=== PATIENT | female | born 1985 | race Caucasian/White ===

== ENCOUNTER 2018-08-24 11:06 | Emergency (ER) | payer MEDICAID ==
[~2018-08-24] VITALS: Ht 167.6 cm; Wt 58.5 kg
[~2018-08-24 11:06] MED LIST: CARAFATE 1 GM TA1 GM PO; CIPROFLOXACIN500 M1 PO; CLEOCIN HCL150 MG PO; CLOBETASOL PROP59 ML TP; CLOTRIMAZOLE-BE15 GM TP; FERRO-TIME325 MG PO; FLOXIN OTI0.3 %/5 ML OTIC; GAVISCON ES CH1 EAC1 PO; HYDROXYZINE HCL50 MG PO; IBUPROFEN 600600 M1 PO; NOHOMEMEDICATIONS; NORCO 5-325 TA1 EACH PO; OMEPRAZOLE40 MG PO; PEPCID40 MG PO; PRENATAL; PRENATAL MULTI1 EAC2 PO; PROTONIX40 MG PO; PYRIDIUM200 MG PO; ZOFRAN ODT4 MG PO; ZOVIRAX15 GM TP
[2018-08-24] MEDS ORDERED: AZITHROMYCIN 2250 MG PO (11:19)
[2018-08-24 11:40] LABS: ABSOLUTE EOSINOPHILS 0.1 thou/uL (0.0-0.7); ABSOLUTE LYMPHOCYTES 2.2 thou/uL (0.8-5.3); ABSOLUTE MONOCYTES 0.5 thou/uL (0.0-1.2); ABSOLUTE NEUTROPHILS 4.6 thou/uL (1.6-8.1); BASOPHILS 0.5 %; EOSINOPHILS 1.4 %; HEMATOCRIT 39.4 % (37.0-47.0); HEMOGLOBIN 13.1 gm/dL (12.0-15.0); LYMPHOCYTES 30.1 %; MCH 30.7 pg (26.0-34.0); MCHC 33.2 g/dL (28.0-37.0); MCV 92.3 fL (80.0-100.0); MONOCYTES 6.4 %; MPV 8.1 fl. (7.2-11.1); NUCLEATED RBCS 0 /100WBC; PLATELET COUNT* 242 thou/uL (150-400); POLYS 61.6 %; RBC 4.27 mil/uL (4.20-5.00); RDW-CV 12.9 % (10.5-14.5); WBC 7.4 thou/uL (4.0-11.0)
[2018-08-24 11:49] LABS: CALCIUM 9.4 mg/dL (8.5-10.1); CREATININE 0.6 mg/dL (0.6-1.3); POTASSIUM 3.7 mmol/L (3.5-5.1)
[2018-08-24 11:54] LABS: ALBUMIN 4.2 g/dL (3.4-5.0); TOTAL BILIRUBIN 0.4 mg/dL (<0.1-1.0); TOTAL PROTEIN 7.9 g/dL (6.4-8.2)
[2018-08-24 13:35] LABS: URINE BILIRUBIN NEGATIVE (Negative); URINE BLOOD 3+ (Negative); URINE CLARITY CLEAR; URINE COLOR YELLOW; URINE GLUCOSE-RANDOM NEGATIVE (Negative); URINE KETONES NEGATIVE (Negative); URINE LEUKOCYTES-REFLEX NEGATIVE (Negative); URINE NITRITE-REFLEX NEGATIVE (Negative); URINE PROTEIN NEGATIVE (Negative); URINE UROBILINOGEN 0.2 E.U./dl (0.2-1.0)
[2018-08-24 13:43] LABS: SQUAMOUS >10 Many /LPF (0-3)
[2018-08-24 13:44] LABS: URINE RBC 3-10 Few /HPF (0-2); URINE WBC-REFLEX 0-5 Rare /HPF (0-5)
[2018-08-24 13:45] LABS: BACTERIA-REFLEX 1-9 Few /HPF (None Seen); MUCUS 0-3 Light strn/LPF (None Seen)
[2018-08-24 13:46] LABS: AMORPHOUS URATES Few /LPF (None Seen); CRYSTALS None Seen /LPF (None Seen)
[2018-08-24 14:04] VITALS: BP 121/65
[2018-08-24 14:16] LABS: CASTS None Seen /LPF (None Seen)
== END 2018-08-24 14:06 | disposition home or self-care (01) ==
LOC: M.ERS 11:06
PROVIDERS: Nurse Practitioner Family
DX: O20.0 Threatened abortion (principal); Z90.49 Acquired absence of other specified parts of digestive tract; Z3A.01 Less than 8 weeks gestation of pregnancy

== ENCOUNTER 2018-09-03 12:06 | Emergency (ER) | payer OTHER, MEDICAID ==
[~2018-09-03] VITALS: Ht 170.2 cm; Wt 65.8 kg
[~2018-09-03 12:06] MED LIST changes: +AZITHROMYCIN 2250 MG PO
[2018-09-03 12:28] LABS: URINE BILIRUBIN NEGATIVE (Negative); URINE BLOOD 3+ (Negative); URINE CLARITY CLOUDY; URINE COLOR YELLOW; URINE GLUCOSE-RANDOM NEGATIVE (Negative); URINE KETONES NEGATIVE (Negative); URINE LEUKOCYTES-REFLEX TRACE (Negative); URINE NITRITE-REFLEX NEGATIVE (Negative); URINE PROTEIN TRACE (Negative); URINE SPECIFIC GRAVITY >= 1.030 (1.005-1.030); URINE UROBILINOGEN 0.2 E.U./dl (0.2-1.0)
[2018-09-03 12:36] LABS: BACTERIA-REFLEX 1-9 Few /HPF (None Seen); CASTS None Seen /LPF (None Seen); MUCUS None Seen strn/LPF (None Seen); SQUAMOUS 4-10 Moderate /LPF (0-3); URINE WBC-REFLEX 0-5 Rare /HPF (0-5)
[2018-09-03 12:37] LABS: CRYSTALS None Seen /LPF (None Seen)
[2018-09-03 13:00] VITALS: BP 129/77
== END 2018-09-03 13:04 | disposition home or self-care (01) ==
LOC: M.ERS 12:06
PROVIDERS: Personal Emergency Response Attendant
DX: O46.91 Antepartum hemorrhage, unspecified, first trimester (principal); Z90.49 Acquired absence of other specified parts of digestive tract; Z3A.08 8 weeks gestation of pregnancy

== ENCOUNTER 2019-07-23 10:53 | Emergency (ER) | payer OTHER ==
[~2019-07-23] VITALS: Ht 167.6 cm; Wt 59.0 kg
[2019-07-23] MEDS ORDERED: KEFLEX500 M1 PO (11:45)
[2019-07-23] MEDS ORDERED: BUTALB-APAP-CA1 EACH PO (11:45)
[2019-07-23 11:54] VITALS: BP 128/73
== END 2019-07-23 11:54 | disposition home or self-care (01) ==
LOC: M.ERS 10:53
DX: G44.009 Cluster headache syndrome, unspecified, not intractable (principal); L72.3 Sebaceous cyst; Z90.49 Acquired absence of other specified parts of digestive tract

== ENCOUNTER 2019-10-28 17:25 | Emergency (ER) | payer OTHER ==
[~2019-10-28] VITALS: Ht 167.6 cm; Wt 56.7 kg
[~2019-10-28 17:25] MED LIST changes: +BUTALB-APAP-CA1 EACH PO; +KEFLEX500 M1 PO
[2019-10-28] MEDS ORDERED: VALACYCLOVIR500 MG PO (17:58)
[2019-10-28 18:05] VITALS: BP 132/80
== END 2019-10-28 18:06 | disposition home or self-care (01) ==
LOC: M.ERS 17:25
DX: R21 Rash and other nonspecific skin eruption (principal); Z76.0 Encounter for issue of repeat prescription; Z90.49 Acquired absence of other specified parts of digestive tract; Z91.018 Allergy to other foods; Z88.0 Allergy status to penicillin

== ENCOUNTER 2019-11-12 14:50 | Emergency (ER) | payer OTHER ==
[~2019-11-12] VITALS: Ht 167.6 cm; Wt 58.1 kg
[~2019-11-12 14:50] MED LIST changes: +VALACYCLOVIR500 MG PO
[2019-11-12 15:42] LABS: URINE BILIRUBIN NEGATIVE (Negative); URINE BLOOD TRACE (Negative); URINE CLARITY CLEAR; URINE COLOR YELLOW; URINE GLUCOSE-RANDOM NEGATIVE (Negative); URINE KETONES NEGATIVE (Negative); URINE LEUKOCYTES-REFLEX NEGATIVE (Negative); URINE NITRITE-REFLEX NEGATIVE (Negative); URINE PROTEIN NEGATIVE (Negative); URINE SPECIFIC GRAVITY 1.025 (1.005-1.030); URINE UROBILINOGEN 0.2 E.U./dl (0.2-1.0)
[2019-11-12 16:12] LABS: ABSOLUTE EOSINOPHILS 0.1 thou/uL (0.0-0.7); ABSOLUTE LYMPHOCYTES 2.3 thou/uL (0.8-5.3); ABSOLUTE MONOCYTES 0.4 thou/uL (0.0-1.2); ABSOLUTE NEUTROPHILS 3.3 thou/uL (1.6-8.1); BASOPHILS 0.7 %; EOSINOPHILS 1.8 %; HEMATOCRIT 38.7 % (37.0-47.0); HEMOGLOBIN 13.1 gm/dL (12.0-15.0); LYMPHOCYTES 37.2 %; MCH 30.1 pg (26.0-34.0); MCHC 33.9 g/dL (28.0-37.0); MCV 88.6 fL (80.0-100.0); MPV 8.3 fl. (7.2-11.1); NUCLEATED RBCS 0 /100WBC; PLATELET COUNT* 229 thou/uL (150-400); POLYS 53.3 %; RBC 4.37 mil/uL (4.20-5.00); RDW-CV 14.8 % (10.5-14.5); WBC 6.3 thou/uL (4.0-11.0)
[2019-11-12 16:21] LABS: CREATININE 0.7 mg/dL (0.6-1.3); POTASSIUM 3.6 mmol/L (3.5-5.1)
[2019-11-12 16:26] LABS: ALBUMIN 4.4 g/dL (3.4-5.0); TOTAL BILIRUBIN 0.3 mg/dL (<0.1-1.0); TOTAL PROTEIN 8.3 g/dL (6.4-8.2)
[2019-11-12] MEDS ORDERED: BENTYL 20 MG TA20 M1 PO (18:08)
[2019-11-12] MEDS ORDERED: VALTREX 500 MG500 MG PO (18:10)
[2019-11-12 18:27] VITALS: BP 132/76
== END 2019-11-12 18:28 | disposition home or self-care (01) ==
LOC: M.ERS 14:50
PROVIDERS: Nurse Practitioner Family
DX: B02.9 Zoster without complications (principal); R10.31 Right lower quadrant pain; Z88.0 Allergy status to penicillin; Z91.018 Allergy to other foods; Z90.49 Acquired absence of other specified parts of digestive tract

== ENCOUNTER 2020-12-19 00:09 | Emergency (ER) | payer OTHER, MEDICAID ==
[~2020-12-19] VITALS: Ht 167.6 cm; Wt 54.4 kg
[~2020-12-19 00:09] MED LIST changes: +BENTYL 20 MG TA20 M1 PO; +VALTREX 500 MG500 MG PO
[2020-12-19 00:53] VITALS: BP 126/70
== END 2020-12-19 00:53 | disposition left against medical advice (07) ==
LOC: M.ERS 00:09
DX: L98.8 Other specified disorders of the skin and subcutaneous tissue (principal); Z90.49 Acquired absence of other specified parts of digestive tract; Z88.0 Allergy status to penicillin; Z91.018 Allergy to other foods

== ENCOUNTER 2020-12-22 21:10 | Emergency (ER) | payer OTHER, MEDICAID ==
[~2020-12-22] VITALS: Ht 167.6 cm; Wt 54.4 kg
[2020-12-22] MEDS ORDERED: ANXIETY MEDICATION (21:19)
[2020-12-22] MEDS ORDERED: MUSCLE RELAXER (21:19)
[2020-12-22 23:20] LABS: ABSOLUTE EOSINOPHILS 0.2 thou/uL (0.0-0.7); ABSOLUTE LYMPHOCYTES 2.3 thou/uL (0.8-5.3); ABSOLUTE MONOCYTES 0.7 thou/uL (0.0-1.2); ABSOLUTE NEUTROPHILS 3.7 thou/uL (1.6-8.1); BASOPHILS 0.6 %; EOSINOPHILS 2.5 %; HEMATOCRIT 36.9 % (37.0-47.0); HEMOGLOBIN 12.2 gm/dL (12.0-15.0); LYMPHOCYTES 33.3 %; MCH 30.3 pg (26.0-34.0); MCV 91.7 fL (80.0-100.0); MPV 7.8 fl. (7.2-11.1); NUCLEATED RBCS 0 /100WBC; PLATELET COUNT* 280 thou/uL (150-400); POLYS 53.6 %; RBC 4.03 mil/uL (4.20-5.00); RDW-CV 14.3 % (10.5-14.5); WBC 6.9 thou/uL (4.0-11.0)
[2020-12-22 23:29] LABS: CALCIUM 8.6 mg/dL (8.5-10.1); CREATININE 0.7 mg/dL (0.6-1.3); POTASSIUM 3.7 mmol/L (3.5-5.1)
[2020-12-22 23:34] LABS: ALBUMIN 4.1 g/dL (3.4-5.0); TOTAL BILIRUBIN 0.3 mg/dL (<0.1-1.0)
[2020-12-22 23:37] LABS: BE 1.2 mmol/L (-2 to +3); PCO2 41.5 mmHg (35.0-45.0); PO2 96.5 mmHg (75.0-100.0); pH 7.414 (7.340-7.450)
[2020-12-22] MEDS ORDERED: OMEPRAZOLE20 M2 PO (23:51)
[2020-12-22] MEDS ORDERED: CARAFATE 1 GM TA1 GM PO (23:51)
[2020-12-23 00:28] VITALS: BP 108/62
[2020-12-23] MEDS ORDERED: HYDROXYZINE PAM50 MG PO (22:55)
[2020-12-23] MEDS ORDERED: BUSPIRONE HCL10 MG PO (22:55)
[2020-12-24] MEDS ORDERED: VALACYCLOVIR500 MG PO (10:30)
== END 2020-12-23 00:28 | disposition home or self-care (01) ==
LOC: M.ERS 21:10
PROVIDERS: Personal Emergency Response Attendant
DX: K22.4 Dyskinesia of esophagus (principal); R06.02 Shortness of breath; Z90.49 Acquired absence of other specified parts of digestive tract; Z79.899 Other long term (current) drug therapy; Z88.0 Allergy status to penicillin; Z91.018 Allergy to other foods

== ENCOUNTER 2020-12-23 22:37 | Observation (INO) | payer OTHER, MEDICAID ==
[~2020-12-23] VITALS: Ht 167.6 cm; Wt 54.4 kg
--- NOTE | ~2020-12-23 | PROC ---
[facility] [address] [place] [address] PROCEDURE REPORT Name: TORIN CORNELL Room: [address] Sarita West#: [id number] Admission: 12/24/20 Attend Phys: Jakob Castro, Discharge: 12/25/20 Date of : 89 Report #: [id number] THIS REPORT FOR: cc: FAM - No family physician/PCP FAM - No family physician/PCP ~ [facility],Medical Records Staff For GI report, please see the Provation report in Perceptive 7 content. By: 1340Medical Records Staff [facility] /KIMBERLY
[~2020-12-23 22:37] MED LIST changes: +ANXIETY MEDICATION; +MUSCLE RELAXER; +OMEPRAZOLE20 M2 PO
[2020-12-23 22:50] VITALS: BP 156/102
[2020-12-23] MEDS ORDERED: HYDROXYZINE PAM50 MG PO (22:55)
[2020-12-23] MEDS ORDERED: BUSPIRONE HCL10 MG PO (22:55)
[2020-12-24 00:07] LABS: HEMATOCRIT 35.9 % (37.0-47.0); HEMOGLOBIN 12.1 gm/dL (12.0-15.0); MCH 30.7 pg (26.0-34.0); MCHC 33.6 g/dL (28.0-37.0); MCV 91.4 fL (80.0-100.0); MPV 7.7 fl. (7.2-11.1); RBC 3.93 mil/uL (4.20-5.00); WBC 6.5 thou/uL (4.0-11.0)
[2020-12-24 00:59] LABS: CALCIUM 9.8 mg/dL (8.5-10.1); CREATININE 0.7 mg/dL (0.6-1.3); POTASSIUM 3.9 mmol/L (3.5-5.1)
[2020-12-24 01:03] LABS: ALBUMIN 4.3 g/dL (3.4-5.0); TOTAL BILIRUBIN 0.3 mg/dL (<0.1-1.0); TOTAL PROTEIN 7.7 g/dL (6.4-8.2)
[2020-12-24 01:08] LABS: URINE BILIRUBIN NEGATIVE (Negative); URINE BLOOD NEGATIVE (Negative); URINE CLARITY CLEAR; URINE COLOR YELLOW; URINE GLUCOSE-RANDOM NEGATIVE (Negative); URINE KETONES NEGATIVE (Negative); URINE LEUKOCYTES-REFLEX NEGATIVE (Negative); URINE NITRITE-REFLEX NEGATIVE (Negative); URINE PROTEIN NEGATIVE (Negative); URINE SPECIFIC GRAVITY 1.015 (1.005-1.030); URINE UROBILINOGEN 0.2 E.U./dl (0.2-1.0)
--- NOTE | 2020-12-24 07:00 | NUR ---
assumed care of pt at this time.
[2020-12-24 07:30] VITALS: BP 99/64
[2020-12-24 08:41] VITALS: BP 107/74
[2020-12-24 09:00] VITALS: BP 120/84
[2020-12-24] MEDS ORDERED: VALACYCLOVIR500 MG PO (10:30)
[2020-12-24 12:22] VITALS: BP 105/67
[2020-12-24 15:53] VITALS: BP 106/66
--- NOTE | 2020-12-24 17:05 | NUR ---
PT A&OX4 VSS. PT TO BE NPO AT MIDNIGHT FOR EGD IN AM. PT UP AD CELINE, GAIT STEADY. IV TO RAC PATENT, DRESSING C/D/I. PT REMAINS CONTINENT OF B/B. PT RESTS IN ROOM WITH CALL LIGHT AND PHONE IN REACH.
--- NOTE | 2020-12-24 17:31 | EKG ---
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 : 1985 Requested By: Nicol Luna Order Number: [id number] Murphy MD: Ugo Haley Measurements Intervals [place] Rate: 101 P: 72 [place]: 121 QRS: 1 QRSD: 100 T: -46 QT: 361 QTc: 468 Interpretive Statements Sinus tachycardia RSR' in V1 or V2, right VCD Borderline T abnormalities, diffuse leads Compared to ECG 01/02/2014 00:00:25 RSR' in V1 or V2 now present T-wave abnormality now present Sinus rate has increased ST (T wave) deviation no longer present Electronically Signed On 12-24-2020 17:31:12 CDT by Ugo Haley [email or web address] <ELECTRONICALLY SIGNED> By: Ugo Haley MD, [facility] 12/24/20 1731 15 15 Ugo Haley MD, [facility] /EPI
--- NOTE | 2020-12-24 17:35 | EKG ---
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: LEON : 1985 Requested By: Nicol Luna Order Number: [id number] MD: Ugo Haley Measurements Intervals [place] Rate: 84 P: 10 [place]: 109 QRS: 13 QRSD: 110 T: -14 QT: 376 QTc: 445 Interpretive Statements Sinus rhythm Short LA interval RSR' in V1 or V2, right VCD Borderline T abnormalities, inferior leads Compared to ECG 12/22/2020 21:16:49 Short LA interval now present Sinus tachycardia no longer present T-wave abnormality still present Electronically Signed On 12-24-2020 17:35:27 CDT by Ugo Haley [email or web address] <ELECTRONICALLY SIGNED> By: Ugo Haley MD, [facility] 12/24/20 1735 48 224 Ugo Haley MD, [facility] /EPI
[2020-12-24 17:40] LABS: HEMATOCRIT 35.8 % (37.0-47.0); HEMOGLOBIN 11.9 gm/dL (12.0-15.0); MCH 30.9 pg (26.0-34.0); MCHC 33.3 g/dL (28.0-37.0); MCV 92.6 fL (80.0-100.0); MPV 7.9 fl. (7.2-11.1); RBC 3.86 mil/uL (4.20-5.00); RDW-CV 13.8 % (10.5-14.5); WBC 6.1 thou/uL (4.0-11.0)
[2020-12-24 20:00] VITALS: BP 117/82
--- NOTE | 2020-12-24 20:00 | NUR ---
RECEIVED REPORT AND ASSUMED CARE OF PT, ASSESSMENT COMPLETED. PT SITTING UP IN CHAIR, C/O CHEST PAIN. DISCUSSED NEGATIVE STRESS TEST, EGD TOMORROW AND ANXIETY. HS MEDS GIVEN TO ASSIST. TELEMETRY ON SHOWING SR. WILL CONT TO MONITOR AND ASSIST NEEDED.
[2020-12-25] VITALS: BP 104/68
[2020-12-25 04:10] VITALS: BP 100/72
[2020-12-25 04:37] LABS: HEMATOCRIT 33.1 % (37.0-47.0); MCH 30.3 pg (26.0-34.0); MCHC 33.3 g/dL (28.0-37.0); MCV 91.2 fL (80.0-100.0); MPV 8.2 fl. (7.2-11.1); RBC 3.63 mil/uL (4.20-5.00); RDW-CV 13.9 % (10.5-14.5); WBC 6.7 thou/uL (4.0-11.0)
[2020-12-25 04:40] LABS: ALBUMIN 3.6 g/dL (3.4-5.0); CREATININE 0.7 mg/dL (0.6-1.3); MAGNESIUM 2.5 mg/dL (1.8-2.4); POTASSIUM 4.1 mmol/L (3.5-5.1); TOTAL BILIRUBIN 0.3 mg/dL (<0.1-1.0); TOTAL PROTEIN 6.8 g/dL (6.4-8.2)
--- NOTE | 2020-12-25 06:15 | NUR ---
SLEPT WELL. NO CHANGE IN ASSESSMENT. GAIT STEADY AROUND ROOM. CONT TO HAVE CHEST PAIN WHEN AWAKE. NPO SINCE [place] FOR EGD THIS AM. TELEMETRY CONT TO SHOW SR. HS GOAL OF REST AND COMFORT PARTICALLY ACHIEVED. HOURLY ROUNDING OBSERVED.
--- NOTE | 2020-12-25 08:54 | TST ---
[place] [address] TREADMILL STRESS TEST Name: TORIN CORNELL Room: [address] M.R.#: [id number] Admission: 12/24/20 Attend Phys: Jakob Bass Discharge: Date of : 89 Date of Service: 12/24/20 1759 Report #: [id number] THIS REPORT FOR: cc: FAM - No family physician/PCP FAM - No family physician/PCP Julián Frederick MD [facility] ~ DATE OF SERVICE: 12/24/2020 INDICATION: Chest pain and dyspnea. CARDIAC HISTORY: None. RISK FACTORS: Family history of coronary artery disease. CARDIAC MEDICATIONS: None. The patient exercised for a total of 9 minutes and 10 seconds on the standard Miller protocol. The patient achieved 10.40 METS. The patient achieved 106% age-predicted maximum heart rate. The resting blood pressure was 132/90 with a resting heart rate of 101 beats per minute. At peak stress, the blood pressure was 145/82 mmHg with peak stress heart rate of 200 beats per minute. In recovery, the blood pressure was 117/76 mmHg with a heart rate of 110 beats per minute. The patient reported chest discomfort 3/10 during exercise. The baseline 12-lead EKG shows sinus rhythm with some nonspecific ST segment depression in leads III and aVF. No other significant ST segment or T-wave abnormalities were noted. With exercise, the patient was noted to have sinus tachycardia with no significant ST-segment depression. Recovery EKGs were unremarkable. There were no stress-induced arrhythmias. IMPRESSION: 1. Clinical response, equivocal. 2. EKG response, nonischemic. <ELECTRONICALLY SIGNED> By: Julián Frederick MD, FACC 12/25/20 0854 1759 09 Julián Frederick MD, FACC /nt
--- NOTE | 2020-12-25 10:30 | NUR ---
PT.ALERT AND ORIENTED. TO HAVE EGD THIS AM. IF NEGATIVE,WILL BE DISCHARGED LATER. PT.SAID SHE LIVES WITH HER S.O. AND HER KIDS. IS ACTIVE AND INDEPENDENT. NO USE OF DME. SHOULD NOT HAVE ANY DISCHARGE NEEDS.
[2020-12-25 11:00] VITALS: BP 112/70
--- NOTE | 2020-12-25 11:10 | NUR ---
PT OF CASSY TO GI LAB.
[2020-12-25] MEDS ORDERED: PROTONIX40 M2 PO (13:29)
[2020-12-25 13:42] VITALS: BP 112/70
== END 2020-12-25 14:05 | disposition home or self-care (01) ==
LOC: M.ERS 22:37 → M.TBA-ER 12-24 01:43 → M.2W 12-24 09:05
PROVIDERS: Internal Medicine; Internal Medicine Gastroenterology; Personal Emergency Response Attendant; ADMIT Family Medicine; ATTEND Family Medicine
DX: K44.9 Diaphragmatic hernia without obstruction or gangrene (principal); R07.89 Other chest pain; R11.2 Nausea with vomiting, unspecified; R10.9 Unspecified abdominal pain; Z79.899 Other long term (current) drug therapy; Z20.822 Contact with and (suspected) exposure to COVID-19

== ENCOUNTER → 2020-12-31 | Outpatient (CLI) | payer OTHER, MEDICAID ==
[~2020-12-31] MED LIST changes: +BUSPIRONE HCL10 MG PO; +HYDROXYZINE PAM50 MG PO; +PROTONIX40 M2 PO
== END ==
LOC: M.RAD 09:56
PROVIDERS: ATTEND Nurse Practitioner Adult Health
DX: R13.10 Dysphagia, unspecified (principal)

== ENCOUNTER 2021-01-11 09:33 | Emergency (ER) | payer OTHER, MEDICAID ==
[~2021-01-11] VITALS: Ht 167.6 cm; Wt 53.5 kg
[2021-01-11] MEDS ORDERED: OMEPRAZOLE40 MG PO (09:44)
[2021-01-11 09:55] LABS: ABSOLUTE EOSINOPHILS 0.1 thou/uL (0.0-0.7); ABSOLUTE LYMPHOCYTES 1.2 thou/uL (0.8-5.3); ABSOLUTE MONOCYTES 0.9 thou/uL (0.0-1.2); ABSOLUTE NEUTROPHILS 7.5 thou/uL (1.6-8.1); BASOPHILS 0.4 %; EOSINOPHILS 1.1 %; HEMATOCRIT 35.3 % (37.0-47.0); HEMOGLOBIN 11.7 gm/dL (12.0-15.0); LYMPHOCYTES 12.4 %; MCH 30.4 pg (26.0-34.0); MCHC 33.2 g/dL (28.0-37.0); MCV 91.8 fL (80.0-100.0); MONOCYTES 9.7 %; MPV 7.4 fl. (7.2-11.1); NUCLEATED RBCS 0 /100WBC; PLATELET COUNT* 239 thou/uL (150-400); POLYS 76.4 %; RBC 3.84 mil/uL (4.20-5.00); RDW-CV 13.8 % (10.5-14.5); WBC 9.8 thou/uL (4.0-11.0)
[2021-01-11 10:06] LABS: ANION GAP 8 mmol/L (7-16); BUN 11 mg/dL (7-18); CALCIUM 9.4 mg/dL (8.5-10.1); CHLORIDE 103 mmol/L (98-107); CO2 28 mmol/L (21-32); CREATININE 0.7 mg/dL (0.6-1.3); GLUCOSE 85 mg/dL (70-99); POTASSIUM 3.8 mmol/L (3.5-5.1); SODIUM 139 mmol/L (136-145)
[2021-01-11 10:18] LABS: ALBUMIN 4.2 g/dL (3.4-5.0); ALKALINE PHOSPHATASE 43 U/L (46-116); CK-MB MASS < 0.5 ng/mL (<0.5-3.6); LIPASE 207 U/L (73-393); MAGNESIUM 2.1 mg/dL (1.8-2.4); NT-PRO BRAIN NAT PEPTIDE 29 pg/mL (<300); SGOT 12 U/L (15-37); SGPT 20 U/L (30-65); TOTAL BILIRUBIN 0.4 mg/dL (<0.1-1.0); TOTAL PROTEIN 8.1 g/dL (6.4-8.2)
[2021-01-11 10:20] LABS: APTT 24.9 Seconds (25.0-31.3); PROTIME 10.2 Seconds (9.20-11.50)
[2021-01-11] MEDS ORDERED: PREDNISONE 20 M20 M1 PO (11:00)
[2021-01-11] MEDS ORDERED: HYDROCODON-ACE1 EAC7 PO (11:00)
[2021-01-11] MEDS ORDERED: PROTONIX40 M4 PO (11:00)
[2021-01-11 11:07] VITALS: BP 126/79
--- NOTE | 2021-01-11 15:43 | EKG ---
[place] [address] ELECTROCARDIOGRAM REPORT Name: TORIN CORNELL Room: [facility]#: [id number] Admission: 01/11/21 Attend Phys: Discharge: 01/11/21 Date of : 89 Date of Service: 01/11/21 0937 Report #: [id number] THIS REPORT FOR: //name// [facility] ED Test Date: 2021-01-11 Test Time: 09:37:23 Pat Name: TORIN CORNELL Department: Room: Gender: Cash Application Clerk: ALEXX : 1985 Requested By: Harvey Enamorado Order Number: [id number] MD: Yovani Gilliam Measurements Intervals [place] Rate: 98 P: 80 [place]: 126 QRS: 15 QRSD: 98 T: -11 QT: 340 QTc: 435 Interpretive Statements Sinus rhythm nonspecific st segment changes RSR' in V1 or V2, right VCD or RVH Compared to ECG 12/23/2020 22:49:53 no change Electronically Signed On 01-11-2021 15:43:22 CDT by Yovani Gilliam [email or web address] <ELECTRONICALLY SIGNED> By: Yovani Gilliam MD, [facility] 01/11/21 1543 0937 0937 Yovani Gilliam MD, [facility] /EPI
== END 2021-01-11 11:09 | disposition home or self-care (01) ==
LOC: M.ERS 09:33
PROVIDERS: Family Medicine
DX: R07.89 Other chest pain (principal); Z88.0 Allergy status to penicillin; Z88.8 Allergy status to other drugs, medicaments and biological substances; Z91.018 Allergy to other foods; Z90.49 Acquired absence of other specified parts of digestive tract

== ENCOUNTER 2021-02-19 09:49 | Emergency (ER) | payer BC, OTHER, MEDICAID ==
[~2021-02-19] VITALS: Ht 167.6 cm; Wt 56.7 kg
[~2021-02-19 09:49] MED LIST changes: +HYDROCODON-ACE1 EAC7 PO; +PREDNISONE 20 M20 M1 PO; +PROTONIX40 M4 PO
[2021-02-19 10:36] VITALS: BP 142/88
== END 2021-02-19 10:37 | disposition home or self-care (01) ==
LOC: M.ERS 09:49
DX: S00.512A Abrasion of oral cavity, initial encounter (principal); Q38.3 Other congenital malformations of tongue; R68.2 Dry mouth, unspecified; Z88.0 Allergy status to penicillin; Z88.8 Allergy status to other drugs, medicaments and biological substances; Z91.018 Allergy to other foods; Z90.49 Acquired absence of other specified parts of digestive tract; X58.XXXA Exposure to other specified factors, initial encounter; Y93.89 Activity, other specified; Y92.89 Other specified places as the place of occurrence of the external cause; Y99.8 Other external cause status

== ENCOUNTER 2021-03-19 10:02 | Emergency (ER) | payer OTHER ==
[~2021-03-19] VITALS: Ht 167.6 cm; Wt 58.1 kg
[2021-03-19] MEDS ORDERED: LORAZEPAM 0.50.5 MG PO (10:16)
[2021-03-19 10:53] LABS: ABSOLUTE EOSINOPHILS 0.2 thou/uL (0.0-0.7); ABSOLUTE LYMPHOCYTES 1.7 thou/uL (0.8-5.3); ABSOLUTE MONOCYTES 0.5 thou/uL (0.0-1.2); ABSOLUTE NEUTROPHILS 4.3 thou/uL (1.6-8.1); BASOPHILS 0.5 %; EOSINOPHILS 3.2 %; HEMATOCRIT 38.9 % (37.0-47.0); HEMOGLOBIN 13.1 gm/dL (12.0-15.0); LYMPHOCYTES 25.1 %; MCH 31.6 pg (26.0-34.0); MCHC 33.5 g/dL (28.0-37.0); MCV 94.1 fL (80.0-100.0); MONOCYTES 7.3 %; MPV 7.9 fl. (7.2-11.1); NUCLEATED RBCS 0 /100WBC; PLATELET COUNT* 211 thou/uL (150-400); POLYS 63.9 %; RBC 4.14 mil/uL (4.20-5.00); RDW-CV 13.9 % (10.5-14.5); WBC 6.7 thou/uL (4.0-11.0)
[2021-03-19 11:00] LABS: CALCIUM 9.5 mg/dL (8.5-10.1); CREATININE 0.7 mg/dL (0.6-1.3); POTASSIUM 4.4 mmol/L (3.5-5.1)
[2021-03-19 11:10] LABS: ALBUMIN 4.3 g/dL (3.4-5.0); MAGNESIUM 2.3 mg/dL (1.8-2.4); TOTAL BILIRUBIN 0.1 mg/dL (<0.1-1.0); TOTAL PROTEIN 7.8 g/dL (6.4-8.2)
[2021-03-19] MEDS ORDERED: HYDROCODON-ACE1 EAC7 PO (13:29)
[2021-03-19 13:38] VITALS: BP 118/90
--- NOTE | 2021-03-20 10:27 | EKG ---
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: Alia : 1985 Requested By: Bryanna Chavez Order Number: [id number] Reading MD: Yovani Gilliam Measurements Intervals [place] Rate: 90 P: 68 HI: 118 QRS: 34 QRSD: 94 T: -9 QT: 340 QTc: 416 Interpretive Statements Sinus rhythm artifact noted Borderline short HI interval RSR' in V1 or V2, probably normal variant Borderline repolarization abnormality Compared to ECG 01/11/2021 09:37:23 no change Electronically Signed On 03-20-2021 10:27:45 CDT by Yovani Gilliam [email or web address] <ELECTRONICALLY SIGNED> By: Yovani Gilliam MD, [facility] 03/20/21 1027 1010 1010 Yovani Gilliam MD, [facility] /EPI
== END 2021-03-19 13:39 | disposition home or self-care (01) ==
LOC: M.ERS 10:02
PROVIDERS: Nurse Practitioner Family
DX: R07.89 Other chest pain (principal); R13.10 Dysphagia, unspecified; Z88.0 Allergy status to penicillin; Z88.8 Allergy status to other drugs, medicaments and biological substances; Z79.899 Other long term (current) drug therapy; Z90.49 Acquired absence of other specified parts of digestive tract

== ENCOUNTER 2021-03-30 11:37 | Emergency (ER) | payer OTHER ==
[~2021-03-30] VITALS: Ht 167.6 cm; Wt 56.7 kg
[~2021-03-30 11:37] MED LIST changes: +LORAZEPAM 0.50.5 MG PO
[2021-03-30] MEDS ORDERED: NORCO5 PO (12:05)
[2021-03-30] MEDS ORDERED: MEDROLDOSEPACK PO (12:05)
[2021-03-30] MEDS ORDERED: ZANAFLEX4 MG PO (12:05)
[2021-03-30 12:14] VITALS: BP 135/81
== END 2021-03-30 12:15 | disposition home or self-care (01) ==
LOC: M.ERS 11:37
DX: S16.1XXA Strain of muscle, fascia and tendon at neck level, initial encounter (principal); S39.012A Strain of muscle, fascia and tendon of lower back, initial encounter; M54.6 Pain in thoracic spine; Z88.0 Allergy status to penicillin; Z88.8 Allergy status to other drugs, medicaments and biological substances; Z91.018 Allergy to other foods; Z90.49 Acquired absence of other specified parts of digestive tract; X50.9XXA Other and unspecified overexertion or strenuous movements or postures, initial encounter; Y93.89 Activity, other specified; Y92.89 Other specified places as the place of occurrence of the external cause; Y99.8 Other external cause status

== ENCOUNTER 2021-05-25 10:25 | Emergency (ER) | payer OTHER ==
[~2021-05-25] VITALS: Ht 167.6 cm; Wt 62.1 kg
[~2021-05-25 10:25] MED LIST changes: +MEDROLDOSEPACK PO; +NORCO5 PO; +ZANAFLEX4 MG PO
[2021-05-25 10:30] VITALS: BP 128/87
[2021-05-25] MEDS ORDERED: NEURONTIN 300M300 M2 PO (10:38)
[2021-05-25 11:04] LABS: ABSOLUTE BASOPHILS 0.1 thou/uL (0.0-0.2); ABSOLUTE EOSINOPHILS 0.2 thou/uL (0.0-0.7); ABSOLUTE LYMPHOCYTES 1.6 thou/uL (0.8-5.3); ABSOLUTE MONOCYTES 0.4 thou/uL (0.0-1.2); ABSOLUTE NEUTROPHILS 4.8 thou/uL (1.6-8.1); BASOPHILS 1.2 %; EOSINOPHILS 3.5 %; HEMATOCRIT 39.8 % (37.0-47.0); LYMPHOCYTES 22.6 %; MCH 30.3 pg (26.0-34.0); MCHC 32.6 g/dL (28.0-37.0); MCV 92.8 fL (80.0-100.0); MONOCYTES 5.6 %; MPV 7.6 fl. (7.2-11.1); NUCLEATED RBCS 0 /100WBC; PLATELET COUNT* 307 thou/uL (150-400); POLYS 67.1 %; RBC 4.29 mil/uL (4.20-5.00); RDW-CV 13.2 % (10.5-14.5); WBC 7.2 thou/uL (4.0-11.0)
[2021-05-25 11:12] LABS: URINE BILIRUBIN NEGATIVE (Negative); URINE BLOOD NEGATIVE (Negative); URINE CLARITY CLEAR; URINE COLOR YELLOW; URINE GLUCOSE-RANDOM NEGATIVE (Negative); URINE KETONES NEGATIVE (Negative); URINE LEUKOCYTES-REFLEX TRACE (Negative); URINE NITRITE-REFLEX NEGATIVE (Negative); URINE PROTEIN NEGATIVE (Negative); URINE SPECIFIC GRAVITY <= 1.005 (1.005-1.030); URINE UROBILINOGEN 0.2 E.U./dl (0.2-1.0)
[2021-05-25 11:12] LABS: CALCIUM 9.4 mg/dL (8.5-10.1); CREATININE 0.6 mg/dL (0.6-1.3); POTASSIUM 4.2 mmol/L (3.5-5.1)
[2021-05-25 11:19] LABS: SQUAMOUS 0-3 Few /LPF (0-3)
[2021-05-25 11:20] LABS: BACTERIA-REFLEX 1-9 Few /HPF (None Seen); CASTS None Seen /LPF (None Seen); CRYSTALS None Seen /LPF (None Seen); URINE RBC 0-2 Rare /HPF (0-2); URINE WBC-REFLEX 0-5 Rare /HPF (0-5)
[2021-05-25] MEDS ORDERED: DIFLUCAN150 MG PO (11:23)
== END 2021-05-25 11:58 | disposition home or self-care (01) ==
LOC: M.ERS 10:25
PROVIDERS: Nurse Practitioner Family
DX: N89.8 Other specified noninflammatory disorders of vagina (principal); Z90.49 Acquired absence of other specified parts of digestive tract; Z79.899 Other long term (current) drug therapy; Z88.0 Allergy status to penicillin; Z88.8 Allergy status to other drugs, medicaments and biological substances; Z91.02 Food additives allergy status; Z91.018 Allergy to other foods

== ENCOUNTER 2021-06-17 10:28 | Emergency (ER) | payer OTHER ==
[~2021-06-17] VITALS: Ht 167.6 cm; Wt 62.6 kg
[~2021-06-17 10:28] MED LIST changes: +DIFLUCAN150 MG PO; +NEURONTIN 300M300 M2 PO
[2021-06-17 11:04] LABS: URINE BILIRUBIN NEGATIVE (Negative); URINE BLOOD TRACE (Negative); URINE CLARITY CLEAR; URINE COLOR YELLOW; URINE GLUCOSE-RANDOM NEGATIVE (Negative); URINE KETONES NEGATIVE (Negative); URINE LEUKOCYTES-REFLEX NEGATIVE (Negative); URINE NITRITE-REFLEX NEGATIVE (Negative); URINE PROTEIN NEGATIVE (Negative); URINE SPECIFIC GRAVITY 1.015 (1.005-1.030); URINE UROBILINOGEN 0.2 E.U./dl (0.2-1.0)
[2021-06-17 11:12] LABS: AMP/METHAMP Negative (Negative); BARBITURATES Negative (Negative); BENZODIAZEPINES Negative (Negative); COCAINE Negative (Negative); METHADONE Negative (Negative); OPIATES POSITIVE (Negative); PCP Negative (Negative); THC Negative (Negative)
[2021-06-17 11:17] LABS: ABSOLUTE BASOPHILS 0.1 thou/uL (0.0-0.2); ABSOLUTE EOSINOPHILS 0.2 thou/uL (0.0-0.7); ABSOLUTE LYMPHOCYTES 2.2 thou/uL (0.8-5.3); ABSOLUTE MONOCYTES 0.5 thou/uL (0.0-1.2); ABSOLUTE NEUTROPHILS 3.7 thou/uL (1.6-8.1); EOSINOPHILS 2.7 %; HEMATOCRIT 39.3 % (37.0-47.0); HEMOGLOBIN 13.1 gm/dL (12.0-15.0); LYMPHOCYTES 33.5 %; MCH 30.9 pg (26.0-34.0); MCHC 33.3 g/dL (28.0-37.0); MCV 92.7 fL (80.0-100.0); MONOCYTES 7.6 %; MPV 7.1 fl. (7.2-11.1); NUCLEATED RBCS 0 /100WBC; PLATELET COUNT* 282 thou/uL (150-400); POLYS 55.2 %; RBC 4.24 mil/uL (4.20-5.00); RDW-CV 13.9 % (10.5-14.5); WBC 6.6 thou/uL (4.0-11.0)
[2021-06-17 11:49] LABS: CALCIUM 9.5 mg/dL (8.5-10.1); CREATININE 0.7 mg/dL (0.6-1.3); POTASSIUM 4.4 mmol/L (3.5-5.1)
[2021-06-17 11:54] LABS: ALBUMIN 4.6 g/dL (3.4-5.0); TOTAL BILIRUBIN 0.2 mg/dL (<0.1-1.0); TOTAL PROTEIN 7.6 g/dL (6.4-8.2)
--- NOTE | 2021-06-17 12:06 | EKG ---
[place] [address] ELECTROCARDIOGRAM REPORT Name: TORIN CORNELL Room: [facility]#: [id number] Admission: 06/17/21 Attend Phys: Discharge: Date of : 89 Date of Service: 06/17/21 1103 Report #: [id number] THIS REPORT FOR: //name// 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: Director [employer]: S : 1985 Requested By: Bryanna Chavez Order Number: [id number] MD: Yovani Gilliam Measurements Intervals [place] Rate: 71 P: 42 MD: 113 QRS: 10 QRSD: 106 T: 3 QT: 363 QTc: 395 Interpretive Statements Sinus rhythm Borderline short [place] interval RSR' in V1 or V2, right VCD or RVH Compared to ECG 03/19/2021 10:10:54 no change Electronically Signed On 06-17-2021 12:06:21 CDT by Yovani Gilliam [email or web address] <ELECTRONICALLY SIGNED> By: Yovani Gilliam MD, [facility] 06/17/21 1206 1103 1103 Yovani Gilliam MD, [facility] /EPI
[2021-06-17] MEDS ORDERED: DICYCLOMINE HCL20 MG PO (13:15)
[2021-06-17] MEDS ORDERED: IBUPROFEN 800800 M1 PO (13:15)
[2021-06-17] MEDS ORDERED: HYDROCODON-ACE1 EAC7 PO (13:16)
[2021-06-17 13:40] VITALS: BP 115/74
== END 2021-06-17 13:42 | disposition home or self-care (01) ==
LOC: M.ERS 10:28
PROVIDERS: Nurse Practitioner Family
DX: R10.11 Right upper quadrant pain (principal); R10.2 Pelvic and perineal pain; Z90.49 Acquired absence of other specified parts of digestive tract; Z90.711 Acquired absence of uterus with remaining cervical stump; Z79.899 Other long term (current) drug therapy; Z88.0 Allergy status to penicillin; Z88.8 Allergy status to other drugs, medicaments and biological substances; Z91.02 Food additives allergy status

== ENCOUNTER 2021-07-22 11:11 | Emergency (ER) | payer OTHER ==
[~2021-07-22] VITALS: Ht 167.6 cm; Wt 62.6 kg
[~2021-07-22 11:11] MED LIST changes: +DICYCLOMINE HCL20 MG PO; +IBUPROFEN 800800 M1 PO
[2021-07-22 12:03] VITALS: BP 135/85
== END 2021-07-22 12:05 | disposition home or self-care (01) ==
LOC: M.ERS 11:11
DX: J30.9 Allergic rhinitis, unspecified (principal); Z20.822 Contact with and (suspected) exposure to COVID-19; Z90.49 Acquired absence of other specified parts of digestive tract; Z90.711 Acquired absence of uterus with remaining cervical stump; Z79.899 Other long term (current) drug therapy; Z88.0 Allergy status to penicillin; Z88.6 Allergy status to analgesic agent; Z91.02 Food additives allergy status

== ENCOUNTER 2021-07-26 10:38 | Emergency (ER) | payer OTHER ==
[~2021-07-26] VITALS: Ht 167.6 cm; Wt 61.2 kg
[2021-07-26] MEDS ORDERED: FEXOFENADINE-P1 EACH PO (10:49)
[2021-07-26] MEDS ORDERED: SLOW FE142 MG PO (10:49)
[2021-07-26 11:13] LABS: URINE BILIRUBIN NEGATIVE (Negative); URINE BLOOD TRACE (Negative); URINE CLARITY CLEAR; URINE COLOR YELLOW; URINE GLUCOSE-RANDOM NEGATIVE (Negative); URINE KETONES NEGATIVE (Negative); URINE LEUKOCYTES-REFLEX NEGATIVE (Negative); URINE NITRITE-REFLEX NEGATIVE (Negative); URINE PROTEIN NEGATIVE (Negative); URINE SPECIFIC GRAVITY <= 1.005 (1.005-1.030); URINE UROBILINOGEN 0.2 E.U./dl (0.2-1.0)
[2021-07-26] MEDS ORDERED: MACROBID 100 M100 M1 PO (11:44)
[2021-07-26 11:58] VITALS: BP 125/77
== END 2021-07-26 11:59 | disposition home or self-care (01) ==
LOC: M.ERS 10:38
PROVIDERS: Physician Assistant
DX: R35.0 Frequency of micturition (principal); Z90.49 Acquired absence of other specified parts of digestive tract; Z86.16 Personal history of COVID-19; Z90.711 Acquired absence of uterus with remaining cervical stump; Z79.891 Long term (current) use of opiate analgesic; Z79.899 Other long term (current) drug therapy; Z88.0 Allergy status to penicillin; Z88.6 Allergy status to analgesic agent; Z88.8 Allergy status to other drugs, medicaments and biological substances; Z91.018 Allergy to other foods

== ENCOUNTER 2021-08-16 09:53 | Emergency (ER) | payer OTHER ==
[~2021-08-16] VITALS: Ht 167.6 cm; Wt 60.8 kg
[~2021-08-16 09:53] MED LIST changes: +FEXOFENADINE-P1 EACH PO; +MACROBID 100 M100 M1 PO; +SLOW FE142 MG PO
[2021-08-16 10:39] LABS: URINE BILIRUBIN NEGATIVE (Negative); URINE BLOOD TRACE (Negative); URINE CLARITY CLEAR; URINE COLOR YELLOW; URINE GLUCOSE-RANDOM NEGATIVE (Negative); URINE KETONES NEGATIVE (Negative); URINE LEUKOCYTES-REFLEX NEGATIVE (Negative); URINE NITRITE-REFLEX NEGATIVE (Negative); URINE PROTEIN NEGATIVE (Negative); URINE SPECIFIC GRAVITY <= 1.005 (1.005-1.030); URINE UROBILINOGEN 0.2 E.U./dl (0.2-1.0)
[2021-08-16 10:47] LABS: ABSOLUTE EOSINOPHILS 0.2 thou/uL (0.0-0.7); ABSOLUTE LYMPHOCYTES 1.7 thou/uL (0.8-5.3); ABSOLUTE MONOCYTES 0.6 thou/uL (0.0-1.2); ABSOLUTE NEUTROPHILS 3.6 thou/uL (1.6-8.1); BASOPHILS 0.6 %; EOSINOPHILS 3.5 %; HEMATOCRIT 39.9 % (37.0-47.0); HEMOGLOBIN 13.2 gm/dL (12.0-15.0); LYMPHOCYTES 27.9 %; MCHC 33.1 g/dL (28.0-37.0); MCV 93.7 fL (80.0-100.0); MONOCYTES 9.3 %; MPV 7.3 fl. (7.2-11.1); NUCLEATED RBCS 0 /100WBC; PLATELET COUNT* 243 thou/uL (150-400); POLYS 58.7 %; RBC 4.26 mil/uL (4.20-5.00); RDW-CV 13.6 % (10.5-14.5); WBC 6.2 thou/uL (4.0-11.0)
[2021-08-16 10:56] LABS: CALCIUM 9.2 mg/dL (8.5-10.1); CREATININE 0.7 mg/dL (0.6-1.3); POTASSIUM 4.8 mmol/L (3.5-5.1)
[2021-08-16 11:00] LABS: ALBUMIN 4.3 g/dL (3.4-5.0); TOTAL BILIRUBIN 0.5 mg/dL (<0.1-1.0)
[2021-08-16] MEDS ORDERED: DICYCLOMINE HCL20 MG PO (13:54)
[2021-08-16] MEDS ORDERED: FLEXERIL PO (13:54)
[2021-08-16] MEDS ORDERED: IBUPROFEN 800800 M1 PO (13:54)
[2021-08-16 14:09] VITALS: BP 116/63
== END 2021-08-16 14:10 | disposition home or self-care (01) ==
LOC: M.ERS 09:53
PROVIDERS: Nurse Practitioner Family
DX: M54.50 Low back pain, unspecified (principal); R10.31 Right lower quadrant pain; R10.32 Left lower quadrant pain; Z90.49 Acquired absence of other specified parts of digestive tract; Z90.711 Acquired absence of uterus with remaining cervical stump; Z79.899 Other long term (current) drug therapy; Z88.0 Allergy status to penicillin; Z88.6 Allergy status to analgesic agent; Z91.02 Food additives allergy status